=== PATIENT | female | born 1980 | race Caucasian/White ===

== ENCOUNTER 2025-01-29 17:52 | Emergency (ER) | payer OTHER ==
[2025-01-29 18:07] VITALS: BMI 29.0
[2025-01-29] MEDS ORDERED: ACETAMINOPHEN INJECTION 100 ML ONE (19:16)
[2025-01-29] MEDS: ACETAMINOPHEN 1000 MG/100 ML BAG IVPB ONE (19:25)
[2025-01-29 19:42] LABS: BASOPHILS # 0.02 x10^3/uL (0.01-0.08)
[2025-01-29 19:44] LABS: EOSINOPHILS # 0.08 x10^3/uL (0.04-0.36); HEMATOCRIT 36.8 % (34.1-44.9); MCHC 32.6 g/dl (32.2-35.5); MEAN CELL VOLUME 92.9 fl (79.4-94.8); MEAN PLT VOLUME 13.3 fl (9.4-12.3); MONOCYTE # 0.36 x10^3/uL (0.24-0.86); PLATELET COUNT 142 x10^3/uL (182-369); RDW 13.8 % (12.2-17.1)
[2025-01-29 19:55] LABS: POTASSIUM 4.1 mmol/L (3.5-5.1)
[2025-01-29 19:57] LABS: ALBUMIN 3.7 g/dl (3.4-5.0); CALCIUM 9.5 mg/dL (8.5-10.1)
[2025-01-29 19:58] LABS: BLOOD UREA NITROGEN 18.1 mg/dL (7-18)
[2025-01-29 20:00] LABS: CREATININE 0.8 mg/dL (0.55-1.3)
[2025-01-29 20:02] LABS: BILIRUBIN,TOTAL 0.6 mg/dL (0.2-1); TOT PROT 7.2 g/dl (6.4-8.2)
[2025-01-29 20:08] LABS: INR 1.28 (0.83-1.09); PROTHROMBIN TIME (PATIENT) 14.1 SEC (9.7-13.0)
[2025-01-29 20:11] LABS: ACTIVATED PTT 30.6 SECONDS (25.2-36.5)
[2025-01-29] MEDS ORDERED: FAMOTIDINE 20 MG/50 ML IVPB 20 MG/50 ML MG IVPB ONE (20:26)
[2025-01-29] MEDS ORDERED: MAG HYDROX/AL HYDROX/SIMETH 30 ML UNIT-DOSE CUP ONE (20:26)
[2025-01-29] MEDS: FAMOTIDINE 20 MG/50 ML IVPB 20 MG/50 ML MG IVPB ONE (20:30)
[2025-01-29] MEDS: MAG HYDROX/AL HYDROX/SIMETH 30 ML UNIT-DOSE CUP PO ONE (20:30)
[2025-01-29] MEDS ORDERED: KETOROLAC TROMETHAMINE 15 MG/ML VIAL ONE (21:41)
[2025-01-29] MEDS: KETOROLAC TROMETHAMINE 15 MG/ML VIAL IVPUSH ONE (21:45)
[2025-01-29 21:59] VITALS: TEMP 98.2
[2025-01-29 22:12] VITALS: BP 134/83; PULSE 80; RESP 18
== END 2025-01-29 22:13 | disposition home or self-care (01) ==
LOC: JER 17:52
PROC: 3E033GC Introduction of Other Therapeutic Substance into Peripheral Vein, Percutaneous Approach (ICD-10-PCS; principal; 2025-01-29)
PROC: 3E033NZ Introduction of Analgesics, Hypnotics, Sedatives into Peripheral Vein, Percutaneous Approach (ICD-10-PCS; 2025-01-29)
PROC: 3E0333Z Introduction of Anti-inflammatory into Peripheral Vein, Percutaneous Approach (ICD-10-PCS; 2025-01-29)
DX: R07.81 Pleurodynia (principal); R10.13 Epigastric pain; R10.31 Right lower quadrant pain
CPT/HCPCS: 36415; 71046-TC-FY; 76705-TC; 80053; 83690; 84484; 84703; 85025; 85379; 85610; 85730; 93005; 93010; 99285-25; J0131